=== PATIENT | female | born 1965 ===

== ENCOUNTER 2025-02-09 11:06 | Outpatient (REF) | payer SELFPAY ==
[2025-02-09 18:32] LABS: HBs Antibody, Quant 71.2 mIU/mL (See Note); Hepatitis B Surface Ab Positive (See Note)
[2025-02-10 09:41] LABS: Rubella IgG Ab (UVM) Positive (See Note)
[2025-02-11 12:30] LABS: TB Interpretation Negative (Negative); TB1 Ag minus Nil 0.02 IU/mL; TB2 Ag minus Nil 0.02 IU/mL
== END 2025-02-09 11:07 | disposition home or self-care (01) ==
LOC: LBO 11:06
DX: Z02.1 Encounter for pre-employment examination (principal)
CPT/HCPCS: 36415; 86706; 86787; 87340; 86480; 86735; 86762; 86765